=== PATIENT | female | born 1985 | race Caucasian/White ===

== ENCOUNTER 2019-04-26 11:59 | Emergency (ER) | payer MEDICAID ==
[~2019-04-26] VITALS: Ht 160 cm; Wt 59.1 kg
[2019-04-26 12:08] VITALS: Ht 160 cm; Wt 59.1 kg
[2019-04-26] MEDS ORDERED: IBUPROFEN800 MG PO (12:43)
[2019-04-26 13:26] VITALS: BP 112/78
== END 2019-04-26 13:27 | disposition home or self-care (01) ==
LOC: D.ER 11:59
DX: S89.91XA Unspecified injury of right lower leg, initial encounter (principal); X58.XXXA Exposure to other specified factors, initial encounter